=== PATIENT | male | born 2000 ===

== ENCOUNTER 2024-08-30 18:51 | Emergency (ER) | payer OTHER ==
[~2024-08-30] VITALS: Ht 170.2 cm; Wt 95.2 kg
[2024-08-30 19:08] VITALS: BP 124/82
[2024-08-30] MEDS ORDERED: Fluorescein Sod 1MG Opth Strips RIGHTEYE ONE (20:20)
[2024-08-30] MEDS ORDERED: Tetracaine HCl/Pf 0.5% Opth Soln 4 ml RIGHTEYE ONE (20:20)
[2024-08-30] MEDS ORDERED: ERYT1OIN RIGHTEYE (22:55)
[2024-08-30] MEDS ORDERED: Ofloxacin 0.3% Opth Soln 5 ML RIGHTEYE ONE (22:55)
[2024-08-30] MEDS ORDERED: Erythromycin 0.5% Opth Oint 1 gm RIGHTEYE ONE (22:55)
[2024-08-30] MEDS ORDERED: OCUFLOX510 RIGHTEYE (22:55)
== END 2024-08-30 23:12 | disposition home or self-care (01) ==
LOC: ER 18:51
DX: T15.91XA Foreign body on external eye, part unspecified, right eye, initial encounter (principal)
CPT/HCPCS: 99282; A9270